=== PATIENT | female | born 1960 | race Caucasian/White ===

== ENCOUNTER 2018-09-29 07:27 | Day surgery (SDC) | payer BC, OTHER ==
[2018-09-29] MEDS ORDERED: PROPOFOL 500 MG/50 ML EMU IV ONE (08:07)
[2018-09-29] MEDS ORDERED: LIDOCAINE HCL 1% MPF 30 SOL ONE (08:07)
[2018-09-29 09:01] VITALS: BP 135/80; PULSE 73; RESP 16; TEMP 97.9; O2SAT 94
== END 2018-09-29 09:20 | disposition home or self-care (01) ==
LOC: SURG 07:27
PROVIDERS: ATTEND Surgery
DX: Z12.11 Encounter for screening for malignant neoplasm of colon (principal); Z80.0 Family history of malignant neoplasm of digestive organs; K57.32 Diverticulitis of large intestine without perforation or abscess without bleeding
CPT/HCPCS: J2001; J2704